=== PATIENT | female | born 2000 | race Caucasian/White ===

== ENCOUNTER 2018-10-14 12:07 | Emergency (ER) | payer BC ==
[~2018-10-14] VITALS: Ht 175.3 cm; Wt 72.7 kg
[2018-10-14 12:23] VITALS: TEMP 98.2
[2018-10-14 15:55] LABS: COLLECTION METHOD CLEAN CATCH
[2018-10-14 16:03] LABS: PH 6 (5-8); SQUAMOUS EPITHELIAL 0-2 /hpf; URINE APPEARANCE Clear; URINE BACTERIA Rare /hpf; URINE BILIRUBIN Negative (NEGATIVE); URINE BLOOD Negative (NEGATIVE); URINE COLOR Colorless; URINE GLUCOSE Negative (NEGATIVE); URINE KETONE Trace (NEGATIVE); URINE LEUKOCYTE ESTERASE Negative (NEGATIVE); URINE NITRATE Negative (NEGATIVE); URINE PROTEIN(semi-quant) Negative (NEGATIVE); URINE RBC 0-2 /hpf; URINE UROBILINOGEN Negative (NEGATIVE)
[2018-10-14] MEDS ORDERED: FLEXERIL 1010 MG/TAB PO (16:33)
[2018-10-14 17:04] VITALS: BP 106/65; PULSE 81
== END 2018-10-14 17:03 | disposition home or self-care (01) ==
LOC: COL.ER 12:07
PROVIDERS: Nurse Practitioner
DX: S39.012A Strain of muscle, fascia and tendon of lower back, initial encounter (principal); Y93.67 Activity, basketball